=== PATIENT | male | born 1975 | race Hispanic/Latino ===

== ENCOUNTER 2017-07-16 22:21 | Emergency (ER) | payer BC, OTHER, SELFPAY ==
[2017-07-16 22:55] LABS: #Basophils 0.1 thou/uL (0.0-0.2); #Eosinphils 0.3 thou/uL (0.0-0.7); #Lymphocytes 3.4 thou/uL (1.20-3.40); #Monocytes 0.6 thou/uL (0.11-0.59); #Neutrophils 3.3 thou/uL (1.40-6.50); %Eosinophils 4.4 % (0.0-10.0); %Lymphocytes 44.2 % (21.0-51.0); %Monocytes 7.4 % (0.0-10.0); Hematocrit 43.1 % (42.0-52.0); Red Blood Cell (RBC) Count 4.86 mill/uL (4.70-6.10); White Blood Cell (WBC) Count 7.6 thou/uL (4.8-10.8)
[2017-07-16 22:58] LABS: PTT 30.8 SEC (22.9-36.1); Prothrombin Time 12.1 SEC (12.0-14.7)
[2017-07-16] MEDS ORDERED: Nitroglycerin 0.4 MG TAB (25 Tab Bottle) ONE (23:02)
--- NOTE | 2017-07-16 23:08 | RAD ---
PORTABLE CHEST: History: Chest pain, palpitations. FINDINGS: Heart size and mediastinum are within normal limits. The lungs are clear of infiltrates. No signific ant bony findings. IMPRESSION: No active intrathoracic disease. POS: [id number]
[2017-07-16 23:11] LABS: ALT (SGPT) 56 U/L (8-55); AST (SGOT) 44 U/L (5-34); Alkaline Phosphatase 93 U/L (40-150); Anion Gap 17 mmol/L (10-20); BUN (Urea Nitrogen) 14 mg/dL (8.9-20.6); Bilirubin, Total 0.4 mg/dL (0.2-1.2); CK (CPK) 117 U/L (30-200); Calc. Creatinine Clearance 0 mL/min (70-130); Calcium 9.7 mg/dL (7.8-10.44); Carbon Dioxide 24 mmol/L (22-29); Chloride 102 mmol/L (98-107); Estimated GFR-MDRD 80; Globulin 5.2 g/dL (2.4-3.5); Lipase 57 U/L (8-78); Magnesium 3.4 mg/dL (1.6-2.6); Protein, Total 9.6 g/dL (6.0-8.3)
[2017-07-16 23:13] LABS: Troponin I Less than 0.010 ng/mL (< 0.028)
[2017-07-17 00:39] LABS: Troponin I Less than 0.010 ng/mL (< 0.028)
== END 2017-07-17 01:47 | disposition home or self-care (01) ==
LOC: ERS 22:21
DX: R07.89 Other chest pain (principal); F17.210 Nicotine dependence, cigarettes, uncomplicated
CPT/HCPCS: 36415; 71010; 80053; 82550; 82553; 83690; 83735; 83880; 84484; 85025; 85610; 85730; 93005; 94760; 96360